=== PATIENT | female | born 1960 | race Caucasian/White ===

== ENCOUNTER 2017-12-25 11:54 | Day surgery (SDC) | payer OTHER, SELFPAY ==
[2017-12-25] MEDS: SODIUM CHLORIDE 0.9% 1,000 ML 200 ML IV (12:14)
[2017-12-25 12:25] VITALS: BP 109/75; PULSE 70; RESP 16; TEMP 36.8; O2SAT 100; BMI 24.2
--- NOTE | 2017-12-25 13:11 | PM.HP.1 ---
History of Present Illness Date Patient Seen: 12/25/17 Time Patient Seen: 13:11 Chief complaint: [id number] Narrative: 57-year-old otherwise relatively healthy female who presents today with personal history of colon polyps requiring colorectal surveillance for such. It has been 5 years since her last examination. On further history today, she denies any nausea, vomiting, anorexia, unintended weight loss, abdominal pain, change in bowel habits, diarrhea, constipation, melena, hematochezia, or bright red blood per rectum. Patient History Medical History History of colon polyps (Acute) Migraine headache (Acute) Osteoarthritis (Acute) Surgical History History of colonoscopy (Acute) Family & Social History Family History: Reviewed 12/25/17 by Compa Brown MD Social History: household members spouse Meds Home Medications Medication Instructions Recorded Confirmed Type sumatriptan succinate 100 mg PO Q2-4H PRN 12/25/17 12/25/17 History Allergies Allergy/AdvReac Type Severity Reaction Status Date / Time cephalexin Allergy Severe Anaphylaxis Verified 12/25/17 12:16 Review of Systems Review of Systems All systems reviewed & are unremarkable except as noted in HPI and below Exam Vital Signs (past 8 hours): - 12/25/17 12:25 Temperature 98.2 F Pulse Rate 70 Respiratory Rate 16 Blood Pressure 109/75 Pulse Oximetry 100 Oxygen Delivery Method Room Air Narrative Exam Narrative: Well-nourished well-developed female in no acute distress. Alert oriented x3 Sclera nonicteric Chest clear to auscultation bilaterally with regular rate rhythm. No murmurs, gallops, rubs Abdomen soft, nondistended, nontender, no masses Extremities no clubbing, cyanosis, or edema Objective Labs Labs: No recent radiographic or laboratory studies for review Assessment & Plan Plan: Assessment/Plan Narrative: 57-year-old female with personal history of colon polyps requiring colorectal surveillance. It has been 5 years since her last colonoscopy. I have recommended repeat colonoscopy today. Technical details of the procedure were discussed. Risks, benefits, and alternatives were explained. Risks including but not limited to sedation, aspiration, bleeding, pain, missed lesion, incomplete examination, need for further radiographic studies, colonic perforation, need for major abdominal surgery, and all attendant risks of major surgery were explained in detail. All questions were answered to her satisfaction, and she voiced understanding. Consent was placed on the chart. We will proceed as above.
--- NOTE | 2017-12-25 13:15 | P.HP_ITS ---
History of Present Illness Date Patient Seen: 12/25/17 Time Patient Seen: 13:11 Chief complaint: [id number] Narrative: 57-year-old otherwise relatively healthy female who presents today with personal history of colon polyps requiring colorectal surveillance for such. It has been 5 years since her last examination. On further history today , she denies any nausea, vomiting, anorexia, unintended weight loss, abdominal pain, change in bowel habits, diarrhea, constipation, melena, hematochezia, or bright red blood per rectum. Patient History Medical History History of colon polyps (Acute) Migraine headache (Acute) Osteoarthritis (Acute) Surgical History History of colonoscopy (Acute) Family & Social History Family History: Reviewed 12/25/17 by Compa Brown MD Social History: household members spouse Meds Home Medications Medication Instructions Recorded Confirmed Type sumatriptan succinate 100 mg PO Q2-4H PRN 12/25/17 12/25/17 History Allergies Allergy/AdvReac Type Severity Reaction Status Date / Time cephalexin Allergy Severe Anaphylaxis Verified 12/25/17 12:16 Review of Systems Review of Systems All systems reviewed & are unremarkable except as noted in HPI and below Exam Vital Signs (past 8 hours): - 12/25/17 12:25 Temperature 98.2 F Pulse Rate 70 Respiratory Rate 16 Blood Pressure 109/75 Pulse Oximetry 100 Oxygen Delivery Method Room Air Narrative Exam Narrative: Well-nourished well-developed female in no acute distress. Alert oriented x3 Sclera nonicteric Chest clear to auscultation bilaterally with regular rate rhythm. No murmurs, gallops, rubs Abdomen soft, nondistended, nontender, no masses Extremities no clubbing, cyanosis, or edema Objective Labs Labs: No recent radiographic or laboratory studies for review Assessment & Plan Plan: Assessment/Plan Narrative: 57-year-old female with personal history of colon polyps requiring colorectal surveillance. It has been 5 years since her last colonoscopy. I have recommended repeat colonoscopy today. Technical details of the procedure were discussed. Risks, benefits, and alternatives were explained. Risks including but not limited to sedation, aspiration, bleeding, pain, missed lesion, incomplete examination, need for further radiographic studies, colonic perforation, need for major abdominal surgery, and all attendant risks of major surgery were explained in detail. All questions were answered to her satisfaction, and she voiced understanding. Consent was placed on the chart. We will proceed as above.
--- NOTE | 2017-12-25 13:15 | PM.PREOP ---
Pre-operative Note Interval Note Pre-op Check: Yes History & Physical Reviewed by Physician, Yes Exam Performed and Yes History & Physical exam performed today by Physician Changes: No H&P completed within 30 days and has changed as indicated here:: Patient seen and examined today. History physical examination dictated and placed on the chart today. We will proceed with colonoscopy today as planned. ASA Class (for procedural sedation): I
[2017-12-25] MEDS: fentaNYL 250 MCG/5 ML INJ IV (13:49)
[2017-12-25] MEDS: MIDAZOLAM 5 MG/5 ML VIAL IV (13:51)
--- NOTE | 2017-12-25 13:51 | PM.OP.ENDO ---
Operative Date/Time/Diagnoses Date of procedure: 12/25/17 Time of procedure: 13:51 Pre-op diagnosis: Personal history of colon polyps Post-op diagnosis: other (Diverticulosis but otherwise normal colon and rectum) Procedure & Clinicians Study performed: 1. Sedation per surgeon 2. Colonoscopy Same procedure as scheduled: Yes Indications: 57-year-old female who underwent colonoscopy 5 years ago was found to have benign polyps that time. She presents now for colorectal surveillance. Colonoscopy is once again recommended. Surgeon: Compa Brown Procedure Notes Procedure in detail: After obtaining informed consent, the patient was brought to the GI suite and placed in the left lateral decubitus position on the examination table. After placement of appropriate monitors, the patient was given incremental doses of Versed and Fentanyl until an appropriate level of sedation was achieved. A time out was held per SCOAP protocol. A digital rectal examination was performed and did not reveal any masses or obstructing lesions. The colonoscope was gently passed into the patient's anus and the entire colon navigated to the level of the cecum with minimal difficulty. Terminal ileum was intubated and noted to be grossly normal. Once in the cecum, the scope was withdrawn being sure to go before and beyond all mucosal folds and prominences and get an excellent examination. The findings are noted above. At the level of the rectal vault, the scope was retroflexed and the internal anal canal was examined. The scope was straightened and air aspirated from the colon. The instrument was removed from the patient's body and the procedure was concluded. The patient was allowed to awaken from sedation without difficulty and taken to the post-anesthesia care unit in good condition. Scope withdrawal time: 9:17 min Sedation minutes: 20 Findings: diverticulosis and other findings (Otherwise normal colon and rectum) Specimen(s): none sent Complications: none Recommendations: Colonscopy in 5 years and High fiber diet Plan for aftercare: 1. Discharged home Follow up: as needed Disposition: PACU
[2017-12-25 13:53] VITALS: BP 106/78; PULSE 73; RESP 15; TEMP 36.7; O2SAT 97
[2017-12-25 14:00] VITALS: BP 108/68; PULSE 68; RESP 12; O2SAT 100
[2017-12-25 14:02] VITALS: BP 106/70; PULSE 70; RESP 14; O2SAT 100
== END 2017-12-25 14:14 | disposition home or self-care (01) ==
PROVIDERS: PCP Family Medicine; Visit Provider Surgery
PROC: 0DJD8ZZ Inspection of Lower Intestinal Tract, Via Natural or Artificial Opening Endoscopic (ICD-10-PCS; CPT 45378; principal; 2017-12-25 13:00)
DX: Z86.010 Personal history of colon polyps (principal); K57.30 Diverticulosis of large intestine without perforation or abscess without bleeding
CPT/HCPCS: 45378; 99152; J2250; J3010

== ENCOUNTER → 2020-12-01 10:48 | Outpatient (CLI) | payer OTHER, SELFPAY ==
[2020-12-01 21:59] LABS: COVID19 - ORCAS (NP or Nasal) Negative (Negative)
== END ==
PROVIDERS: PCP Family Medicine; Visit Provider Physician Assistant Medical
DX: Z20.822 Contact with and (suspected) exposure to COVID-19 (principal)
CPT/HCPCS: U0003

== ENCOUNTER → 2020-12-28 10:48 | Outpatient (CLI) | payer OTHER, SELFPAY ==
[2020-12-28 19:27] LABS: Add Manual Diff / Slide Review NO; Basophils Absolute Auto 0 /uL (0-100); Basophils Percent Auto 1.2 % (0-2); Eosinophils Absolute Auto 100 /uL (0-450); Eosinophils Percent Auto 3.3 % (2-4); Hematocrit 39.3 % (36-46); Hemoglobin 12.9 g/dL (12.0-16.0); Lymphocytes Absolute Auto 1900 /uL (1100-4500); Mean Corpuscular HGB Conc 32.9 % (30-36); Mean Corpuscular Hemoglobin 30.4 PG (26-34); Mean Corpuscular Volume 92.2 fL (80-100); Monocytes Absolute Auto 300 /uL (0-900); Monocytes Percent Auto 8.8 % (3-14); Neutrophils Absolute Auto 1400 /uL (1500-7000); Neutrophils Percent Auto 36.7 % (50-75); Platelet Count 325 X10^3/uL (150-400); Red Blood Cell Count 4.26 X10^6/uL (4.0-5.2); Red Cell Distribution Width 13.3 % (11.6-14.8); White Blood Cell Count 3.8 X10^3/uL (4.5-11.0)
[2020-12-28 19:33] LABS: Alanine Aminotransferase 47 IU/L (<35); Albumin Globulin Ratio 1.5 (1.0-2.8); Alkaline Phosphatase 74 U/L (38-126); Aspartate Aminotransferase 76 IU/L (14-36); BUN Creatinine Ratio 25.5 (6-22); Bilirubin Total 0.8 mg/dL (0.2-1.3); Blood Urea Nitrogen 14 mg/dL (7-17); Calcium 9.3 mg/dL (8.4-10.2); Carbon Dioxide 29 mmol/L (22-32); Chloride 105 mmol/L (98-107); Cholesterol 208 mg/dL (140-199); Estimated Glomerular Filt Rate > 60.0 mL/min (>60); Globulin 2.6 g/dL (1.7-4.1); Glucose 97 mg/dL (70-100); HDL Cholesterol 72 mg/dL (40-60); HEMOLYSIS < 15 (0-50); LDL Cholesterol Calculated 122 mg/dL (<100); Potassium 4.2 mmol/L (3.4-5.1); Sodium 138 mmol/L (137-145); Total Protein 6.6 g/dL (6.3-8.2); Triglycerides 71 mg/dL (35-150)
[2020-12-28 19:46] LABS: Vitamin D 25 Hydroxy (D3) 33.2 ng/mL (30.0-100.0)
[2020-12-28 19:54] LABS: Free T3, Triiodothyronine Free 4.14 pg/mL (2.77-5.27)
[2020-12-28 20:20] LABS: Vitamin B12 477 pg/mL (239-931)
[2020-12-29 20:49] LABS: Hepatitis B Surface Antigen NEGATIVE s/c (NEGATIVE)
[2020-12-30 03:11] LABS: Hepatitis B Core Antibody Negative (Negative)
== END ==
PROVIDERS: PCP Family Medicine; Visit Provider Physician Assistant Medical
DX: Z13.21 Encounter for screening for nutritional disorder (principal); Z13.29 Encounter for screening for other suspected endocrine disorder; Z13.220 Encounter for screening for lipoid disorders; I87.2 Venous insufficiency (chronic) (peripheral); B96.89 Other specified bacterial agents as the cause of diseases classified elsewhere; Z91.89 Other specified personal risk factors, not elsewhere classified; R00.2 Palpitations; E78.49 Other hyperlipidemia; N95.2 Postmenopausal atrophic vaginitis; L65.9 Nonscarring hair loss, unspecified; K21.9 Gastro-esophageal reflux disease without esophagitis; N76.0 Acute vaginitis; Z20.5 Contact with and (suspected) exposure to viral hepatitis
CPT/HCPCS: 80053; 80061; 82306; 82607; 84443; 84481; 85025; 86704; 87340

== ENCOUNTER → 2020-12-29 10:08 | Outpatient (CLI) | payer OTHER, SELFPAY ==
[2021-01-02 11:42] LABS: Fecal Immunochemical Test Negative (Negative)
== END ==
PROVIDERS: PCP Family Medicine; Visit Provider Physician Assistant Medical
DX: R10.9 Unspecified abdominal pain (principal); R19.5 Other fecal abnormalities
CPT/HCPCS: 82274; 87045; 87899

== ENCOUNTER → 2021-01-03 08:48 | Outpatient (CLI) | payer OTHER, SELFPAY ==
[2021-01-03 20:21] LABS: Appearance Urine UA CLEAR; Bilirubin Urine UA NEGATIVE (NEGATIVE); Color Urine UA YELLOW; Glucose Urine UA NEGATIVE (Negative); Ketones Urine UA NEGATIVE (NEGATIVE); Leukocyte Esterase Urine UA NEGATIVE (NEGATIVE); Nitrite Urine UA NEGATIVE (Negative); Occult Blood Urine UA NEGATIVE (Negative); Protein Urine UA NEGATIVE (Negative); Urobilinogen Urine UA 0.2 E.U./dL (0.2)
[2021-01-03 20:23] LABS: pH Urine UA 6.5 (4.5-8.0)
[2021-01-03 20:28] LABS: Creatine Kinase 165 U/L (30-135); Lactate Dehydrogenase 627 U/L (313-618)
[2021-01-03 20:51] LABS: Bacteria Urine None Seen; Culture Indicated Urine Cult Not Indicated; RBC Urine 0-1/HPF (0-5/HPF); Squamous Epithelial Cell Urine 0-1 /HPF (0-5/HPF); WBC Urine 0-1/HPF (0-5/HPF)
[2021-01-04 17:51] LABS: Hep C Virus Ab w/Reflex Quant REACTIVE s/c (NEGATIVE)
[2021-01-05 03:42] LABS: Hepatitis B Core AB w/Reflex Negative (Negative)
[2021-01-05 12:22] LABS: Hepatitis A Ab IgM Negative (Negative); Hepatitis A Ab Total Positive (Negative)
[2021-01-11 09:38] LABS: HBsAg Screen Negative (Negative); Hepatitis A Antibody IgM Negative (Negative); Hepatitis B Core Antibody IgM Negative (Negative); Hepatitis C Antibody >11.0 s/co ratio (0.0-0.9)
== END ==
PROVIDERS: PCP Family Medicine; Visit Provider Physician Assistant Medical
DX: R10.9 Unspecified abdominal pain (principal); R19.5 Other fecal abnormalities; R53.83 Other fatigue; R74.8 Abnormal levels of other serum enzymes; T14.8XXA Other injury of unspecified body region, initial encounter; Z20.5 Contact with and (suspected) exposure to viral hepatitis; R35.0 Frequency of micturition
CPT/HCPCS: 80074; 81001; 82550; 83615; 86704; 86708; 86803; 87522

== ENCOUNTER → 2021-01-25 10:53 | Outpatient (CLI) | payer OTHER, SELFPAY ==
[2021-01-25 20:11] LABS: Alanine Aminotransferase 19 IU/L (<35); Albumin 4.2 g/dL (3.5-5.0); Albumin Globulin Ratio 1.8 (1.0-2.8); Alkaline Phosphatase 74 U/L (38-126); Aspartate Aminotransferase 31 IU/L (14-36); BUN Creatinine Ratio 29.7 (6-22); Bilirubin Total 0.4 mg/dL (0.2-1.3); Blood Urea Nitrogen 19 mg/dL (7-17); Calcium 9.7 mg/dL (8.4-10.2); Carbon Dioxide 31 mmol/L (22-32); Chloride 102 mmol/L (98-107); Creatine Kinase 271 U/L (30-135); Estimated Glomerular Filt Rate > 60.0 mL/min (>60); Gamma Glutamyl Transpeptidase 15 U/L (12-43); Globulin 2.4 g/dL (1.7-4.1); Glucose 104 mg/dL (70-100); HEMOLYSIS < 15 (0-50); Lactate Dehydrogenase 488 U/L (313-618); Potassium 4.4 mmol/L (3.4-5.1); Sodium 138 mmol/L (137-145); Total Protein 6.6 g/dL (6.3-8.2)
== END ==
PROVIDERS: PCP Family Medicine; Visit Provider Physician Assistant Medical
DX: R74.8 Abnormal levels of other serum enzymes (principal); S70.11XD Contusion of right thigh, subsequent encounter
CPT/HCPCS: 80053; 82550; 82977; 83615

== ENCOUNTER → 2021-02-12 09:04 | Outpatient (CLI) | payer OTHER, SELFPAY ==
[2021-02-13 19:28] LABS: Alanine Aminotransferase 17 IU/L (<35); Albumin 4.3 g/dL (3.5-5.0); Albumin Globulin Ratio 1.7 (1.0-2.8); Alkaline Phosphatase 75 U/L (38-126); Aspartate Aminotransferase 28 IU/L (14-36); BUN Creatinine Ratio 28.1 (6-22); Bilirubin Total 0.4 mg/dL (0.2-1.3); Blood Urea Nitrogen 18 mg/dL (7-17); Calcium 9.6 mg/dL (8.4-10.2); Carbon Dioxide 31 mmol/L (22-32); Chloride 101 mmol/L (98-107); Creatine Kinase 145 U/L (30-135); Estimated Glomerular Filt Rate > 60.0 mL/min (>60); Globulin 2.6 g/dL (1.7-4.1); Glucose 94 mg/dL (70-100); HEMOLYSIS < 15 (0-50); Potassium 4.4 mmol/L (3.4-5.1); Sodium 140 mmol/L (137-145); Total Protein 6.9 g/dL (6.3-8.2)
== END ==
PROVIDERS: PCP Family Medicine; Referring Provider Physician Assistant Medical; Visit Provider Physician Assistant Medical
DX: M15.9 Polyosteoarthritis, unspecified (principal); R53.83 Other fatigue; R74.8 Abnormal levels of other serum enzymes
CPT/HCPCS: 80053; 82550

== ENCOUNTER → 2021-10-24 10:20 | Outpatient (CLI) | payer OTHER, SELFPAY ==
[2021-10-24 20:31] LABS: Add Manual Diff / Slide Review NO; Basophils Absolute Auto 0 /uL (0-100); Basophils Percent Auto 0.9 % (0-2); Eosinophils Absolute Auto 100 /uL (0-450); Eosinophils Percent Auto 1.7 % (2-4); Hematocrit 43.2 % (36-46); Hemoglobin 14.5 g/dL (12.0-16.0); Lymphocytes Absolute Auto 2100 /uL (1100-4500); Lymphocytes Percent Auto 52.8 % (25-40); Mean Corpuscular HGB Conc 33.5 % (30-36); Mean Corpuscular Hemoglobin 31.5 PG (26-34); Monocytes Absolute Auto 400 /uL (0-900); Monocytes Percent Auto 8.9 % (3-14); Neutrophils Absolute Auto 1400 /uL (1500-7000); Neutrophils Percent Auto 35.7 % (50-75); Platelet Count 287 X10^3/uL (150-400); Red Blood Cell Count 4.59 X10^6/uL (4.0-5.2); Red Cell Distribution Width 14.3 % (11.6-14.8); White Blood Cell Count 3.9 X10^3/uL (4.5-11.0)
[2021-10-24 20:48] LABS: Appearance Urine UA CLEAR; Bilirubin Urine UA NEGATIVE (NEGATIVE); Color Urine UA YELLOW; Glucose Urine UA NEGATIVE (Negative); Ketones Urine UA NEGATIVE (NEGATIVE); Leukocyte Esterase Urine UA NEGATIVE (NEGATIVE); Nitrite Urine UA NEGATIVE (Negative); Occult Blood Urine UA TRACE-INTACT (Negative); Protein Urine UA NEGATIVE (Negative); Specific Gravity Urine UA 1.015 (1.000-1.035); Urobilinogen Urine UA 0.2 E.U./dL (0.2)
[2021-10-24 20:56] LABS: Alanine Aminotransferase 19 IU/L (<35); Albumin 4.3 g/dL (3.5-5.0); Albumin Globulin Ratio 1.7 (1.0-2.8); Alkaline Phosphatase 69 U/L (38-126); Aspartate Aminotransferase 34 IU/L (14-36); BUN Creatinine Ratio 27.4 (6-22); Bilirubin Total 0.9 mg/dL (0.2-1.3); Blood Urea Nitrogen 17 mg/dL (7-17); Calcium 9.3 mg/dL (8.4-10.2); Carbon Dioxide 27 mmol/L (22-32); Chloride 104 mmol/L (98-107); Cholesterol 231 mg/dL (140-199); Estimated Glomerular Filt Rate > 60 mL/min (>60); Globulin 2.6 g/dL (1.7-4.1); Glucose 98 mg/dL (70-100); HDL Cholesterol 92 mg/dL (40-60); HEMOLYSIS 16 (0-50); LDL Cholesterol Calculated 130 mg/dL (<100); Potassium 4.8 mmol/L (3.4-5.1); Sodium 138 mmol/L (137-145); Total Protein 6.9 g/dL (6.3-8.2); Triglycerides 43 mg/dL (35-150)
[2021-10-25 01:23] LABS: Bacteria Urine None Seen; Culture Indicated Urine Cult Not Indicated; RBC Urine 0-1/HPF (0-5/HPF); WBC Urine None Seen (0-5/HPF)
[2021-10-25 05:38] LABS: Free T3, Triiodothyronine Free 3.83 pg/mL (2.77-5.27)
[2021-10-25 05:40] LABS: Vitamin D 25 Hydroxy (D3) 36.3 ng/mL (30.0-100.0)
[2021-10-25 05:52] LABS: TSH w/ Reflex to FT4 1.03 uIU/mL (0.47-4.68)
== END ==
PROVIDERS: PCP Physician Assistant Medical; Visit Provider Physician Assistant Medical
DX: R35.0 Frequency of micturition (principal); R53.83 Other fatigue; R74.8 Abnormal levels of other serum enzymes; Z13.21 Encounter for screening for nutritional disorder; Z13.220 Encounter for screening for lipoid disorders
CPT/HCPCS: 80053; 80061; 81001; 82306; 84443; 84481; 85025

== ENCOUNTER → 2022-08-27 16:34 | Outpatient (CLI) | payer OTHER, SELFPAY ==
[2022-08-30 12:30] LABS: Candida species Negative (Negative); Gardnerella vaginalis Positive (Negative); Trichomoas vaginalis Negative (Negative)
== END ==
PROVIDERS: PCP Physician Assistant Medical; Visit Provider Physician Assistant
DX: N23 Unspecified renal colic (principal); N89.8 Other specified noninflammatory disorders of vagina
CPT/HCPCS: 87086; 87480; 87510; 87660

== ENCOUNTER → 2022-12-19 09:20 | Outpatient (CLI) | payer OTHER, SELFPAY ==
[2022-12-19 19:53] LABS: Add Manual Diff / Slide Review NO; Basophils Absolute Auto 0 /uL (0-100); Basophils Percent Auto 0.1 % (0-2); Eosinophils Absolute Auto 100 /uL (0-450); Eosinophils Percent Auto 2.5 % (2-4); Hematocrit 39.8 % (36-46); Hemoglobin 13.5 g/dL (12.0-16.0); Lymphocytes Absolute Auto 1700 /uL (1100-4500); Lymphocytes Percent Auto 52.9 % (25-40); Mean Corpuscular HGB Conc 33.9 % (30-36); Mean Corpuscular Hemoglobin 31.8 PG (26-34); Mean Corpuscular Volume 93.9 fL (80-100); Monocytes Absolute Auto 300 /uL (0-900); Monocytes Percent Auto 10.5 % (3-14); Neutrophils Absolute Auto 1100 /uL (1500-7000); Platelet Count 254 X10^3/uL (150-400); Red Blood Cell Count 4.24 X10^6/uL (4.0-5.2); Red Cell Distribution Width 13.8 % (11.6-14.8); White Blood Cell Count 3.3 X10^3/uL (4.5-11.0)
[2022-12-19 20:04] LABS: Alanine Aminotransferase 26 IU/L (<35); Albumin Globulin Ratio 1.5 (1.0-2.8); Alkaline Phosphatase 69 U/L (38-126); Aspartate Aminotransferase 35 IU/L (14-36); BUN Creatinine Ratio 27.1 (6-22); Bilirubin Total 0.7 mg/dL (0.2-1.3); Blood Urea Nitrogen 19 mg/dL (7-17); Calcium 8.9 mg/dL (8.4-10.2); Carbon Dioxide 31 mmol/L (22-32); Chloride 103 mmol/L (98-107); Cholesterol 216 mg/dL (140-199); Estimated Glomerular Filt Rate > 60 mL/min (>60); Globulin 2.6 g/dL (1.7-4.1); Glucose 96 mg/dL (80-110); HDL Cholesterol 95 mg/dL (40-60); HEMOLYSIS 31 (0-50); LDL Cholesterol Calculated 109 mg/dL (<100); Potassium 4.3 mmol/L (3.4-5.1); Sodium 138 mmol/L (137-145); Total Protein 6.6 g/dL (6.3-8.2); Triglycerides 60 mg/dL (35-150)
[2022-12-19 20:18] LABS: TSH w/ Reflex to FT4 0.71 uIU/mL (0.47-4.68)
== END ==
PROVIDERS: PCP Physician Assistant Medical; Visit Provider Physician Assistant Medical
DX: R74.8 Abnormal levels of other serum enzymes (principal); Z13.220 Encounter for screening for lipoid disorders; Z13.29 Encounter for screening for other suspected endocrine disorder
CPT/HCPCS: 80053; 80061; 84443; 85025

== ENCOUNTER → 2023-12-12 09:26 | Outpatient (CLI) | payer BC, SELFPAY | PROVIDERS: PCP Physician Assistant Medical; Referring Provider Physician Assistant Medical; Visit Provider Physician Assistant Medical | DX: N23 Unspecified renal colic (principal) | CPT/HCPCS: 87086 ==

== ENCOUNTER → 2023-12-23 08:30 | Outpatient (CLI) | payer BC, SELFPAY ==
[2023-12-23 20:27] LABS: Hematocrit 43.3 % (36-46); Hemoglobin 14.4 g/dL (12.0-16.0); Mean Corpuscular HGB Conc 33.2 % (30-36); Mean Corpuscular Volume 93.4 fL (80-100); Platelet Count 284 X10^3/uL (150-400); Red Blood Cell Count 4.64 X10^6/uL (4.0-5.2); Red Cell Distribution Width 13.3 % (11.6-14.8); White Blood Cell Count 4.1 X10^3/uL (4.5-11.0)
[2023-12-23 20:35] LABS: Alanine Aminotransferase 15 IU/L (<35); Albumin 4.1 g/dL (3.5-5.0); Albumin Globulin Ratio 1.6 (1.0-2.8); Alkaline Phosphatase 70 U/L (38-126); Aspartate Aminotransferase 29 IU/L (14-36); BUN Creatinine Ratio 28.2 (6-22); Bilirubin Total 0.6 mg/dL (0.2-1.3); Blood Urea Nitrogen 20 mg/dL (7-17); Calcium 9.2 mg/dL (8.4-10.2); Carbon Dioxide 28 mmol/L (22-32); Chloride 104 mmol/L (98-107); Cholesterol 250 mg/dL (140-199); Estimated Glomerular Filt Rate > 60 mL/min (>60); Globulin 2.5 g/dL (1.7-4.1); Glucose 96 mg/dL (80-110); HDL Cholesterol 102 mg/dL (40-60); HEMOLYSIS 27 (0-50); LDL Cholesterol Calculated 136 mg/dL (<100); Potassium 4.3 mmol/L (3.4-5.1); Sodium 136 mmol/L (137-145); Total Protein 6.6 g/dL (6.3-8.2); Triglycerides 58 mg/dL (35-150)
[2023-12-23 20:57] LABS: TSH w/ Reflex to FT4 1.22 uIU/mL (0.47-4.68)
== END ==
PROVIDERS: PCP Physician Assistant Medical; Visit Provider Physician Assistant Medical
DX: Z13.29 Encounter for screening for other suspected endocrine disorder (principal); Z13.220 Encounter for screening for lipoid disorders; R74.8 Abnormal levels of other serum enzymes; E78.49 Other hyperlipidemia; Z86.19 Personal history of other infectious and parasitic diseases
CPT/HCPCS: 80053; 80061; 84443; 85027

== ENCOUNTER 2024-09-06 07:21 | Day surgery (SDC) | payer BC, SELFPAY ==
[2024-09-06 07:38] VITALS: BP 101/66; PULSE 64; RESP 16; TEMP 36.1; O2SAT 99
[2024-09-06] MEDS: LACTATED RINGERS 1,000 ML 42 ML IV (08:00)
--- NOTE | 2024-09-06 08:48 | PM.OP.COLON ---
Operative Date/Time/Diagnoses Date of procedure: 09/06/24 Time of procedure: 09:28 Pre-op diagnosis: See indication and findings Post-op diagnosis: same Procedure & Clinicians Study performed: Colonoscopy Same procedure as scheduled: Yes Indications: History of polyps Surgeon: Reza Pisano Procedure Notes Procedure in detail: After informed consent was obtained the patient was placed in left lateral decubitus position. The video colonoscope was introduced to the rectum slowly advanced cecum. Preparation was good. On slow withdrawal mucosa was carefully examined. The scope was removed. The patient tolerated procedure well. Blood loss none Complications none Sedation mac Findings One. Normal colonoscopy to cecum Patient should have follow-up colonoscopy in 5-7 years
--- NOTE | 2024-09-06 09:05 | P.HP_ITS ---
History of Present Illness History of Present Illness Date Patient Seen: 09/06/24 Chief complaint: Colonoscopy [facility] Medical History (Updated 08/30/24 @ 17:18 by Sobia Doan PA-C) Osteoporosis screening Screening for lipid disorders Screening for thyroid disorder Encounter for vitamin deficiency screening Hepatitis C virus infection cured after antiviral drug therapy Screening for viral disease Osteoarthritis History of colon polyps Migraine headache Surgical History History of colonoscopy Social History household members: spouse Smoking Status: Former smoker Meds Home Medications and Allergies Home Medications Medication Instructions Recorded Confirmed Type multivitamin [Daily Multi-Vitamin] PO 12/28/20 08/30/24 History diclofenac sodium 3 % topical gel 1 applic topical BID #100 grams 01/30/21 08/30/24 Rx cyclobenzaprine 10 mg tablet 10 mg PO TID PRN 12/12/23 08/30/24 History nettle leaf (urtica dioica) PO PRN 12/12/23 08/30/24 History [Nettle [place]] omega 0-gdj-rgx-fish oil 100 cap PO 12/12/23 08/30/24 History mg-160 mg-1,000 mg capsule (Fish Oil) estradiol 0.01% (0.1 mg/gram) 1 g vaginal QWEEK #42.5 grams 12/31/23 08/30/24 Rx vaginal cream (Estrace) sodium,potassium,mag sulfates 17.5 See Rx Instructions PO .COMPLEX 06/21/24 08/30/24 Rx gram-3.13 gram-1.6 gram oral soln #354 mL (Suprep Bowel Prep Kit) Allergies Allergy/AdvReac Type Severity Reaction Status Date / Time cephalexin Allergy Severe Anaphylaxis Verified 09/06/24 07:35 latex Allergy Mild Rash Verified 09/06/24 07:35 Cephalosporins Allergy Unknown SEVERE PAIN Verified 09/06/24 07:35 rhubarb Allergy Unknown VIOLENT Verified 09/06/24 07:35 ABDOMINAL CRAMPING sulfamethoxazole Allergy Unknown SEVERE Verified 09/06/24 07:35 BODY BRUISING Exam Vital Signs (past 8 hours): - 09/06/24 07:38 Temperature 97.0 F L Pulse Rate 64 Respiratory Rate 16 Blood Pressure 101/66 Pulse Oximetry 99 Oxygen Delivery Method Room Air Oxygen Delivery Method Room Air Narrative Exam Narrative: Oropharynx free of lesions Chest clear to auscultation percussion Cardiac exam reveals no S3 or murmur Assessment & Plan Assessment and plan Plan History of colon polyps need for follow-up colonoscopy at a 5 year interval. Risks, benefits, alternatives have been explained. Assessment & Plan narrative: History of colon polyps need for follow-up colonoscopy. Risks, benefits, alternatives have been explained. Time-Based Coding :: [TOTAL MINUTES] spent with patient and on the chart (including review of chart, obtaining history, exam, reviewing outside data, placing orders, documenting exam and treatment plan, and counseling patient) on [DATE].
[2024-09-06 09:32] VITALS: BP 88/58; PULSE 74; RESP 16; TEMP 36.2; O2SAT 97
--- NOTE | 2024-09-06 09:39 | P.HP_ITS ---
History of Present Illness History of Present Illness Date Patient Seen: 09/06/24 Chief complaint: Colonoscopy [facility] Medical History (Updated 08/30/24 @ 17:18 by Sobia Doan PA-C) Osteoporosis screening Screening for lipid disorders Screening for thyroid disorder Encounter for vitamin deficiency screening Hepatitis C virus infection cured after antiviral drug therapy Screening for viral disease Osteoarthritis History of colon polyps Migraine headache Surgical History History of colonoscopy Social History household members: spouse Smoking Status: Former smoker Meds Home Medications and Allergies Home Medications Medication Instructions Recorded Confirmed Type multivitamin [Daily Multi-Vitamin] PO 12/28/20 08/30/24 History diclofenac sodium 3 % topical gel 1 applic topical BID #100 grams 01/30/21 08/30/24 Rx cyclobenzaprine 10 mg tablet 10 mg PO TID PRN 12/12/23 08/30/24 History nettle leaf (urtica dioica) PO PRN 12/12/23 08/30/24 History [Nettle [place]] omega 2-ybr-rnc-fish oil 100 cap PO 12/12/23 08/30/24 History mg-160 mg-1,000 mg capsule (Fish Oil) estradiol 0.01% (0.1 mg/gram) 1 g vaginal QWEEK #42.5 grams 12/31/23 08/30/24 Rx vaginal cream (Estrace) sodium,potassium,mag sulfates 17.5 See Rx Instructions PO .COMPLEX 06/21/24 08/30/24 Rx gram-3.13 gram-1.6 gram oral soln #354 mL (Suprep Bowel Prep Kit) Allergies Allergy/AdvReac Type Severity Reaction Status Date / Time cephalexin Allergy Severe Anaphylaxis Verified 09/06/24 07:35 latex Allergy Mild Rash Verified 09/06/24 07:35 Cephalosporins Allergy Unknown SEVERE PAIN Verified 09/06/24 07:35 rhubarb Allergy Unknown VIOLENT Verified 09/06/24 07:35 ABDOMINAL CRAMPING sulfamethoxazole Allergy Unknown SEVERE Verified 09/06/24 07:35 BODY BRUISING Exam Vital Signs (past 8 hours): - 09/06/24 07:38 09/06/24 09:32 Temperature 97.0 F L 97.1 F L Pulse Rate 64 74 Respiratory Rate 16 16 Blood Pressure 101/66 88/58 L Pulse Oximetry 99 97 Oxygen Delivery Method Room Air Room Air Oxygen Delivery Method Room Air Narrative Exam Narrative: Oropharynx free of lesions Chest clear to auscultation percussion Cardiac exam reveals no S3 or murmur Assessment & Plan Assessment & Plan narrative: History of colon polyps need for follow-up colonoscopy. Risks, benefits, alternatives have been explained. Time-Based Coding :: [TOTAL MINUTES] spent with patient and on the chart (including review of chart, obtaining history, exam, reviewing outside data, placing orders, documenting exam and treatment plan, and counseling patient) on [DATE]. [employer] Document charge(s): No
[2024-09-06 09:47] VITALS: BP 90/61; PULSE 72; RESP 14; O2SAT 96
[2024-09-06 09:59] VITALS: BP 87/58; PULSE 67; RESP 14; O2SAT 98
== END 2024-09-06 10:00 | disposition home or self-care (01) ==
PROVIDERS: PCP Physician Assistant Medical; Referring Provider Internal Medicine Gastroenterology; Visit Provider Internal Medicine Gastroenterology
PROC: 0DJD8ZZ Inspection of Lower Intestinal Tract, Via Natural or Artificial Opening Endoscopic (ICD-10-PCS; CPT 45378; principal; 2024-09-06 08:30)
DX: Z12.11 Encounter for screening for malignant neoplasm of colon (principal); Z86.0100 Personal history of colon polyps, unspecified
CPT/HCPCS: 45378; J2405; J2704

== ENCOUNTER → 2024-09-30 12:34 | Outpatient (CLI) | payer BC, SELFPAY ==
--- NOTE | 2024-09-30 12:36 | DI.MRI.S_ITS ---
PROCEDURE: MR KNEE RT WO CON INDICATIONS: Evaluate Right Knee Injury TECHNIQUE: Noncontrast sagittal PD fast spin echo and T2 fast spin echo with fat saturation, sagittal 3-D FLASH with fat saturation; coronal T1 spin echo and PD fast spin echo with fat saturation, and axial PD fast spin echo with fat saturation through the knee. COMPARISON: None. FINDINGS: Image quality: Excellent. Menisci: Peripheral displacement of medial meniscus bowing medial collateral ligament. Horizontal oblique tear involving posterior horn of medial meniscus extending to superior articulating surface. The lateral meniscus is intact. Cruciate ligaments: The anterior cruciate ligament is mildly thickened. The posterior cruciate ligament is intact. Medial structures: The medial collateral ligament appears thickened with intrasubstance T2 hyperintense signal and adjacent soft tissue edema. Visualized portions of the pes anserinus tendons appear normal. No abnormal bursal fluid. Lateral structures: The lateral collateral ligament is thickened at its femoral insertion with intrasubstance T2 hyperintense signal. The long and short heads of the biceps femoris tendon appear intact. The popliteus tendon appears normal. Iliotibial band appears normal. Anterior structures: The quadriceps and patellar tendons appear intact. Patellar alignment is normal. Bones and cartilage: No bone marrow contusions or fractures. [id number] tricompartmental osteoarthritis and chondromalacia more notably in medial femoral tibial compartment and medial facet of patella cartilage near apex. Joint space: There is moderate knee joint fluid. There is a popliteal cyst measures 2.7 x 3.5 x 5.5 cm in size. Normal appearing synovial plicae are incidentally noted. IMPRESSION: 1. Horizontal oblique tear involving posterior horn of medial meniscus extending to superior articulating surface. The lateral meniscus is intact. 2. Mild degenerative changes are noted in ACL. No ACL rupture. The PCL is intact. 3. Low-grade sprain/partial-thickness tear involving MCL. 4. [id number] tricompartmental osteoarthritis and chondromalacia more notably in medial femoral tibial compartment and medial facet of patella cartilage. No fracture or dislocation. 5. Moderate joint effusion and a popliteal cyst as above. No loose bodies. Dictated by: Nicolás Colon M.D. on 10/01/2024 at 23:58 Approved by: Nicolás Colon M.D. on 10/02/2024 at 0:10
== END ==
PROVIDERS: PCP Physician Assistant Medical; Referring Provider Physician Assistant Medical; Visit Provider Orthopaedic Surgery Adult Reconstructive Orthopaedic Surgery
DX: S83.241A Other tear of medial meniscus, current injury, right knee, initial encounter (principal); S83.411A Sprain of medial collateral ligament of right knee, initial encounter; S89.91XA Unspecified injury of right lower leg, initial encounter; M17.11 Unilateral primary osteoarthritis, right knee; M22.41 Chondromalacia patellae, right knee; M25.461 Effusion, right knee; M71.21 Synovial cyst of popliteal space [Baker], right knee
CPT/HCPCS: 73721

== ENCOUNTER → 2024-12-30 14:40 | Outpatient (CLI) | payer BC, SELFPAY ==
--- NOTE | 2024-12-30 14:41 | DI.MG.S_ITS ---
MM screening mammo BI: 12/30/2024. BI-RADS: 1 CLINICAL: 64-year old female for bilateral screening mammogram. Tyrer-Cuzick lifetime risk of 8.0%. No personal or first-degree family history of breast cancer. PRIOR EXAMS Outside priors 01/16/2024, 01/14/2023, 01/22/2022. MAMMOGRAPHY TECHNIQUE: 2D and 3D (tomosynthesis) digital mammographic views obtained, with additional images as needed for full coverage. Current study was also evaluated with a Computer Aided Detection (CAD) system. DENSITY C. The breasts are heterogeneously dense, which may obscure small masses. MAMMOGRAPHY FINDINGS Bilateral: No suspicious mass, asymmetry, microcalcification, or other abnormality seen. IMPRESSION: * No evidence of malignancy. RECOMMENDATIONS Bilateral * Annual screening mammography. OVERALL ASSESSMENT CATEGORY BI-RADS-1: Negative. The [employer] recommends annual screening mammography beginning at age 40 for women with average risk of breast cancer. ELECTRONICALLY SIGNED: Jeff Hughes M.D. on 12/30/2024 at 10:28:34 PM PT Interpreting Station ID: [id number]
== END ==
PROVIDERS: PCP Physician Assistant Medical; Referring Provider Physician Assistant Medical; Visit Provider Physician Assistant Medical
DX: Z12.31 Encounter for screening mammogram for malignant neoplasm of breast (principal); R92.333 Mammographic heterogeneous density, bilateral breasts
CPT/HCPCS: 77063; 77067

== ENCOUNTER → 2025-02-03 10:57 | Outpatient (CLI) | payer BC, SELFPAY ==
[2025-02-03 18:54] LABS: Add Manual Diff / Slide Review NO; Hematocrit 40.0 % (36-46); Hemoglobin 13.6 g/dL (12.0-16.0); Lymphocytes Absolute Auto 1500 /uL (1100-4500); Mean Corpuscular HGB Conc 34.0 % (30-36); Mean Corpuscular Hemoglobin 31.2 PG (26-34); Mean Corpuscular Volume 91.9 fL (80-100); Platelet Count 265 X10^3/uL (150-400)
[2025-02-03 19:13] LABS: Alanine Aminotransferase 24 IU/L (<35); Albumin 4.2 g/dL (3.5-5.0); Albumin Globulin Ratio 1.7 (1.0-2.8); Alkaline Phosphatase 63 U/L (38-126); Blood Urea Nitrogen 13 mg/dL (7-17); Calcium 9.4 mg/dL (8.4-10.2); Carbon Dioxide 30 mmol/L (22-32); Chloride 101 mmol/L (98-107); Cholesterol 232 mg/dL (140-199); Estimated Glomerular Filt Rate > 60 mL/min (>60); Globulin 2.5 g/dL (1.7-4.1); Glucose 101 mg/dL (70-99); HDL Cholesterol 82 mg/dL (40-60); HEMOLYSIS < 15 (0-50); Potassium 4.3 mmol/L (3.4-5.1); Sodium 137 mmol/L (137-145); Total Protein 6.7 g/dL (6.3-8.2); Triglycerides 79 mg/dL (35-150)
[2025-02-03 19:40] LABS: TSH w/ Reflex to FT4 0.90 uIU/mL (0.47-4.68)
== END ==
PROVIDERS: PCP Physician Assistant Medical; Visit Provider Physician Assistant
DX: R79.9 Abnormal finding of blood chemistry, unspecified (principal); R79.89 Other specified abnormal findings of blood chemistry; E78.5 Hyperlipidemia, unspecified; Z13.29 Encounter for screening for other suspected endocrine disorder; Z83.49 Family history of other endocrine, nutritional and metabolic diseases
CPT/HCPCS: 80053; 80061; 84443; 85025